=== PATIENT | female | born 1985 | race American Indian/Alaskan Native ===

== ENCOUNTER 2017-10-16 21:58 | Inpatient (IN) | payer MEDICAID ==
[2017-10-16] MEDS ORDERED: NACL 0.9% 1000 ML 1,000 ML IV ONE (22:15)
[2017-10-16] MEDS ORDERED: DILAUDID IV ONE ×2 (22:28→23:13)
--- NOTE | 2017-10-16 22:35 | Emergency Department Report ---
ED Shortness of Breath HPI - General Chief Complaint: Sickle Cell Crisis Stated Complaint: SEVERE BODY PAIN SICKLE CELL FIBROMYALGIA Time Seen by Provider: 10/16/17 22:30 Source: patient Mode of arrival: Ambulatory Limitations: No Limitations - History of Present Illness Initial Comments: Gen. 31-year-old female that presents to emergency room with pain all over and states that it is a sickle cell crisis since 2-3 hours ago. Patient states the pain is mostly in her lower extremities and lower back. Patient states she took 800 mg of ibuprofen at 8:30 PM tonight with minimal relief. Patient also states she is on prednisone and amoxicillin for a sinus infection and dental pain. Patient states the pain is a 10 out of 10. Patient also complains of shortness of breath. Patient says shortness breasts worse with ambulation and movement and exertion. He denies chest pain. MD Complaint: shortness of breath -: Sudden, hour(s) Radiation: back Severity: severe Pain Scale: 10 Quality: throbbing, stabbing Consistency: constant Improves With: rest, medication Worsens With: exertion, movement Known History Of: other (sickle cell anemia) Context: recent URI, recent illness Associated Symptoms: cough Treatments Prior to Arrival: other (ibuprofen) - Related Data Home Oxygen Therapy: No Previous Rx's Medication Instructions Recorded Last Taken Type HYDROcodone/APAP 5-325 [[place] 1 each PO Q6HR PRN #14 tablet 07/28/13 Unknown Rx 5/325 mg] Ibuprofen [Motrin] 800 mg PO TID #30 tablet 07/28/13 Unknown Rx Allergies Allergy/AdvReac Type Severity Reaction Status Date / Time No Known Allergies Allergy Unverified 07/28/13 14:24 ED Review of Systems ROS: Stated complaint: SEVERE BODY PAIN SICKLE CELL FIBROMYALGIA Other details as noted in HPI Constitutional: denies: chills, fever Eyes: denies: eye pain, eye discharge, vision change ENT: denies: ear pain, throat pain Respiratory: shortness of breath, SOB with exertion. denies: cough, wheezing Cardiovascular: denies: chest pain, palpitations Endocrine: no symptoms reported Gastrointestinal: denies: abdominal pain, nausea, diarrhea Genitourinary: denies: urgency, dysuria, discharge Musculoskeletal: as per HPI, back pain, arthralgia. denies: joint swelling Skin: denies: rash, lesions Neurological: denies: headache, weakness, paresthesias Psychiatric: denies: anxiety, depression Hematological/Lymphatic: denies: easy bleeding, easy bruising ED Past Medical Hx - Past Medical History Previous Medical History?: Yes Hx Sickle Cell Disease: Yes Hx Asthma: Yes Additional medical history: Fibromyalgia - Surgical History Past Surgical History?: Yes Additional Surgical History: eye surgery for cyst, d+c - Family History Family history: hypertension - Social History Smoking Status: Current Every Day Smoker Substance Use Type: None - Medications Home Medications: Home Medications Medication Instructions Recorded Confirmed Last Taken Type HYDROcodone/APAP 5-325 [[place] 1 each PO Q6HR PRN #14 tablet 07/28/13 Unknown Rx 5/325 mg] Ibuprofen [Motrin] 800 mg PO TID #30 tablet 07/28/13 Unknown Rx ED Physical Exam - General Limitations: No Limitations General appearance: alert, in no apparent distress - Head Head exam: Present: atraumatic, normocephalic - Eye Eye exam: Present: normal appearance - ENT ENT exam: Present: mucous membranes dry - Neck Neck exam: Present: normal inspection - Respiratory Respiratory exam: Present: normal lung sounds bilaterally. Absent: respiratory distress - Cardiovascular Cardiovascular Exam: Present: regular rate, normal rhythm. Absent: systolic murmur, diastolic murmur, rubs, gallop - GI/Abdominal GI/Abdominal exam: Present: soft, normal bowel sounds - Extremities Exam Extremities exam: Present: normal inspection, tenderness. Absent: pedal edema, joint swelling, calf tenderness - Back Exam Back exam: Present: normal inspection, tenderness, paraspinal tenderness - Neurological Exam Neurological exam: Present: alert, oriented X3 - Psychiatric Psychiatric exam: Present: normal affect, normal mood - Skin Skin exam: Present: warm, dry, intact, normal color. Absent: rash ED Course Vital Signs 10/16/17 10/16/17 10/17/17 22:04 22:22 00:53 Temperature 97.4 F L Pulse Rate 133 H 99 H Respiratory 22 16 14 Rate Blood Pressure 157/124 128/67 [Right] O2 Sat by Pulse 100 98 Oximetry - Reevaluation(s) Reevaluation #1: Discussed plan of care and admission with patient. Patient agreeable with plan of care. All results discussed with patient. Hospitalist consulted for admission. Hospitalist agreed to admit. 10/17/17 01:34 ED Medical Decision Making - Lab Data Result diagrams: 10/16/17 22:30 10/16/17 22:30 - EKG Data -: EKG Interpreted by Me EKG shows normal: sinus rhythm, axis, intervals, QRS complexes, ST-T waves Rate: tachycardia - Radiology Data Radiology results: report reviewed, image reviewed No acute findings on chest x-ray. - Medical Decision Making Patient is a 31-year-old female that presented to the hospital with intractable pain and sickle cell crisis and shortness of breath - Differential Diagnosis back pain. Degenerative disc disease. Sickle cell crisis. Shortness of b Critical care attestation.: If time is entered above; I have spent that time in minutes in the direct care of this critically ill patient, excluding procedure time. ED Disposition Clinical Impression: Shortness of breath, Sickle cell crisis, Back pain, Intractable pain Disposition: 09 OP ADMIT IP TO THIS HOSP Is pt being admited?: Yes Does the pt Need Aspirin: No Condition: Serious Time of Disposition: 01:34
[2017-10-16 22:46] LABS: Hematocrit 37.6 % (30.3-42.9); Hemoglobin 12.2 gm/dl (10.1-14.3); Mean Corpuscular HGB Conc 33 % (30-34); Mean Corpuscular Volume 79 fl (79-97); Platelet Count 381 K/mm3 (140-440); Red Blood Count 4.74 M/mm3 (3.65-5.03); Red Cell Distribution Width 15.9 % (13.2-15.2)
[2017-10-16 22:47] LABS: Mean Corpuscular Hemoglobin 26 pg (28-32)
[2017-10-16] MEDS ORDERED: D5NS 0.2% 1,000 ML IV SCH (23:00)
[2017-10-16 23:04] LABS: Creatine Kinase MB 1.1 ng/mL (0.0-4.0)
[2017-10-16 23:05] LABS: Alanine Aminotransferase 17 units/L (7-56); Albumin 4.8 g/dL (3.9-5); BUN/Creatinine Ratio 11; Blood Urea Nitrogen 8 mg/dL (7-17); Calcium 9.5 mg/dL (8.4-10.2); Hemolysis Index 4
[2017-10-16 23:10] LABS: Basophils % (Manual) 0 % (0.0-1.8); Eosinophils % (Manual) 0 % (0.0-4.3); Monocytes % (Manual) 0 % (0.0-7.3); Total Cells Counted 100
[2017-10-16 23:11] LABS: Anisocytosis 1+; Ovalocytes Few
[2017-10-17] MEDS ORDERED: DILAUDID ONE (01:30)
[2017-10-17] MEDS ORDERED: DILAUDID IV ONE (01:31)
[2017-10-17] MEDS ORDERED: HEPARIN ONE (01:41)
--- NOTE | 2017-10-17 01:55 | XRay Report ---
FINAL REPORT EXAM: XR CHEST 1V AP HISTORY: sob TECHNIQUE: A portable upright view the chest was submitted. FINDINGS: The heart size and mediastinum appear normal. The lungs are clear. Pleural fluid is not seen. The bones soft tissues are well maintained. IMPRESSION: No active chest disease.
[2017-10-17] MEDS ORDERED: MILK OF MAGNESIA PO PRN (02:25)
[2017-10-17] MEDS ORDERED: SODIUM CHLORIDE FLUSH SYRINGE 10 ML IV PRN (02:25)
[2017-10-17] MEDS ORDERED: DULCOLAX PR PRN (02:25)
[2017-10-17] MEDS ORDERED: DILAUDID IV PRN (02:25)
[2017-10-17] MEDS ORDERED: NARCAN 0.4 MG/1 ML IV PRN (02:25)
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
[2017-10-17] MEDS ORDERED: D5/0.45NS 1,000 ML IV SCH (03:00)
[2017-10-17] MEDS ORDERED: DELTASONE PO NR (03:00)
[2017-10-17] MEDS: NORCO 5/325 PO PRN ×3 (03:29→22:23)
[2017-10-17] MEDS ORDERED: LIDODERM 5% TD SCH ×2 (06:00→10:00)
[2017-10-17] MEDS: HEPARIN SUB-Q SCH ×3 (06:15→21:08)
[2017-10-17] MEDS: TORADOL IV SCH ×3 (06:16→17:56)
[2017-10-17 07:10] LABS: HCG Qualitative,Urine Negative (Negative)
[2017-10-17] MEDS: DILAUDID IV PRN ×3 (07:34→18:53)
[2017-10-17] MEDS: FOLVITE PO SCH (09:21)
[2017-10-17] MEDS: LIORESAL PO SCH ×3 (09:21→20:20)
[2017-10-17] MEDS: PROTONIX PO SCH (09:22)
[2017-10-17] MEDS: THERAGRAN Tab PO SCH (09:22)
--- NOTE | 2017-10-17 09:49 | Cat Scan Report ---
CT LUMBAR SPINE WITHOUT CONTRAST History: Back pain. Technique: Helical CT with sagittal and coronal reformatted images. Comparison: None. Findings: The lumbar vertebral bodies, disc spaces, facet joints and posterior elements are within normal limits. There is no evidence for fracture, bone lesion or significant degenerative changes. Although intraspinal contents can be obscured on CT, no large epidural defect or epidural hematoma is appreciated. There is suggestion of mild pyelocaliectasis in the right kidney. 1 or 2 punctate right renal stones are identified. The left kidney is unremarkable. IMPRESSION: Lumbar spine within normal limits. Right nephrolithiasis. Questionable right pyelocaliectasis.
[2017-10-17] MEDS ORDERED: AUGMENTIN 875 MG PO ONE (12:02)
[2017-10-17] MEDS: ZOFRAN IV PRN (14:39)
[2017-10-17] MEDS: BENADRYL IV PRN ×2 (14:47→21:01)
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
[2017-10-17] MEDS: D5/0.45NS 1,000 ML IV SCH (20:59)
[2017-10-17] MEDS: AUGMENTIN 875 MG PO SCH (21:06)
[2017-10-17] MEDS: SENOKOT PO SCH (21:06)
[2017-10-17] MEDS ORDERED: VALIUM PO ONE (21:22)
[2017-10-18] MEDS: TORADOL IV SCH ×3 (00:54→11:03)
[2017-10-18] MEDS: DILAUDID IV PRN ×3 (02:01→19:28)
[2017-10-18] MEDS: HEPARIN SUB-Q SCH ×3 (05:54→22:58)
[2017-10-18] MEDS: D5/0.45NS 1,000 ML IV SCH (06:04)
[2017-10-18 07:33] LABS: Basophils # (Auto) 0.1 K/mm3 (0.0-0.1); Basophils % (Auto) 0.4 % (0.0-1.8); Hematocrit 31.8 % (30.3-42.9); Lymphocytes % (Auto) 7.3 % (13.4-35.0); Mean Corpuscular HGB Conc 32 % (30-34); Mean Corpuscular Volume 79 fl (79-97); Monocytes # (Auto) 0.7 K/mm3 (0.0-0.8); Monocytes % (Auto) 5.1 % (0.0-7.3); Platelet Count 303 K/mm3 (140-440); Red Blood Count 4.02 M/mm3 (3.65-5.03); Red Cell Distribution Width 15.7 % (13.2-15.2)
[2017-10-18 07:42] LABS: Mean Corpuscular Hemoglobin 25 pg (28-32)
[2017-10-18] MEDS: LIORESAL PO SCH ×3 (09:05→20:42)
[2017-10-18] MEDS: THERAGRAN Tab PO SCH (09:05)
[2017-10-18] MEDS: PROTONIX PO SCH (09:05)
[2017-10-18] MEDS: AUGMENTIN 875 MG PO SCH ×2 (09:06→22:56)
[2017-10-18] MEDS: FOLVITE PO SCH (09:06)
[2017-10-18] MEDS: NORCO 5/325 PO PRN ×3 (09:06→22:58)
[2017-10-18] MEDS ORDERED: VALIUM PO SCH (13:00)
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
--- NOTE | 2017-10-18 14:26 | Discharge Summary ---
Providers - Providers Date of Admission: 10/17/17 01:33 Date of discharge: 10/18/17 Attending physician: CIARRA ALMARAZ 10/17/17 02:28 Consult to Case Management [CONS] Routine Services Needed at Discharge: Other Notified:: rosanna notified Primary care physician: MAGUI VALDEZ Hospitalization Condition: Stable Disposition: DC-01 TO HOME OR SELFCARE Time spent for discharge: 31 min Core Measure Documentation - Palliative Care Palliative Care/ Comfort Measures: Not Applicable - Core Measures Any of the following diagnoses?: none Exam - Constitutional Vitals: Temp Pulse Resp BP Pulse Ox 98.5 F 92 H 16 132/89 100 10/18/17 08:28 10/18/17 08:28 10/18/17 08:28 10/18/17 08:28 10/18/17 08:28 General appearance: Present: no acute distress, well-nourished - EENT Eyes: Present: PERRL, EOM intact - Neck Neck: Present: supple, normal ROM - Respiratory Respiratory effort: normal Respiratory: negative: rales, rhonchi, wheezing - Cardiovascular Rhythm: regular Heart Sounds: Present: S1 & S2 - Extremities Extremities: no ischemia, No edema - Abdominal General gastrointestinal: Present: soft, non-tender, non-distended, normal bowel sounds - Integumentary Integumentary: Present: clear, warm - Musculoskeletal Musculoskeletal: strength equal bilaterally - Psychiatric Psychiatric: appropriate mood/affect, cooperative - Neurologic Neurologic: CNII-XII intact, moves all extremities Plan Activity: no restrictions Diet: regular Special Instructions: smoking cessation Additional Instructions: Follow private motor inspection mechanic/sickle cell specialist in 1 -2 weeks Follow up with: MAGUI VALDEZ MD [Primary Care Provider] - 3-5 Days Prescriptions: Amoxicillin/K Clav Tab [Augmentin 875MG TAB] 1 each PO Q12HR #10 tablet Folic Acid [Folvite] 1 mg PO QDAY #30 tablet HYDROcodone/APAP 5-325 [Lee 5-325 mg TAB] 1 each PO Q6HR PRN #10 tablet PRN Reason: Pain LORazepam [Ativan] 0.5 mg PO QHS PRN #5 tab PRN Reason: Anxiety
[2017-10-18] MEDS ORDERED: BENADRYL PO PRN (14:33)
[2017-10-18] MEDS: ZOFRAN IV PRN (20:42)
[2017-10-18] MEDS ORDERED: VALIUM PO PRN (22:00)
[2017-10-18] MEDS: SENOKOT PO SCH (22:56)
[2017-10-19] MEDS: HEPARIN SUB-Q SCH (06:25)
[2017-10-19] MEDS: DILAUDID IV PRN (06:58)
[2017-10-19 08:12] LABS: Basophils % (Auto) 0.7 % (0.0-1.8); Eosinophils # (Auto) 0.1 K/mm3 (0.0-0.4); Eosinophils % (Auto) 1.7 % (0.0-4.3); Hematocrit 28.6 % (30.3-42.9); Lymphocytes # (Auto) 1.4 K/mm3 (1.2-5.4); Lymphocytes % (Auto) 33.5 % (13.4-35.0); Mean Corpuscular HGB Conc 31 % (30-34); Mean Corpuscular Volume 80 fl (79-97); Monocytes # (Auto) 0.3 K/mm3 (0.0-0.8); Monocytes % (Auto) 7.7 % (0.0-7.3); Platelet Count 250 K/mm3 (140-440); Red Blood Count 3.58 M/mm3 (3.65-5.03); Red Cell Distribution Width 15.6 % (13.2-15.2)
[2017-10-19 08:16] LABS: Mean Corpuscular Hemoglobin 25 pg (28-32)
[2017-10-19] MEDS: LIORESAL PO SCH (09:24)
[2017-10-19] MEDS: AUGMENTIN 875 MG PO SCH (09:25)
[2017-10-19] MEDS: PROTONIX PO SCH (09:25)
[2017-10-19] MEDS: FOLVITE PO SCH (09:25)
[2017-10-19] MEDS: THERAGRAN Tab PO SCH (09:25)
[2017-10-19 10:35] VITALS: BP 141/86
[2017-10-19] MEDS: NORCO 5/325 PO PRN (12:00)
== END 2017-10-19 15:00 | disposition home or self-care (01) | DRG 812 ==
LOC: ED 21:58 → 3A 10-17 01:33
PROVIDERS: ADMIT Family Medicine; ATTEND Internal Medicine
DX: D57.00 Hb-SS disease with crisis, unspecified (principal); E87.1 Hypo-osmolality and hyponatremia; G89.4 Chronic pain syndrome; F17.200 Nicotine dependence, unspecified, uncomplicated; M54.9 Dorsalgia, unspecified; E87.2 Acidosis; R62.7 Adult failure to thrive; R73.9 Hyperglycemia, unspecified; D72.829 Elevated white blood cell count, unspecified; M79.7 Fibromyalgia; Z82.49 Family history of ischemic heart disease and other diseases of the circulatory system
CPT/HCPCS: 36415; 71045; 72131; 80053; 81025; 82550; 82553; 83880; 84484; 85007; 85025; 85045; 85379; 93005; 93010; 96361; 96374; 96375; J1170; J1200; J1644; J1885; J2405; J2930; J7030; J7512

== ENCOUNTER 2017-12-14 11:38 | Emergency (ER) | payer MEDICAID ==
[2017-12-14] MEDS ORDERED: NORCO 5/325 ONE (11:42)
[2017-12-14] MEDS ORDERED: MOTRIN PO ONE ×2 (11:42→11:52)
[2017-12-14] MEDS ORDERED: NORCO 5/325 PO ONE (11:52)
--- NOTE | 2017-12-14 12:27 | Emergency Department Report ---
ED ENT HPI - General Chief complaint: Dental/Oral Stated complaint: SICKLE CELL PAIN Time Seen by Provider: 12/14/17 12:18 Source: patient, family Mode of arrival: Ambulatory Limitations: No Limitations - History of Present Illness Initial comments: Patient airport cracked tooth for 3 days and she is having increase in pain. Denies sore throats. Denies any cough or nasal congestion. Denies fever or chills or dental trauma She has a history of sickle cell and said that she thinks but denies crisis. It was stated in triage noted patient was having generalized pain but patient reported pain to her right lower tooth where it is broken. She denies any pain to her extremities, abdomen or back. Pain is 10 out of 10 and aching right lower back tooth. Pain is constant .Patient also has a history of fibromyalgia and asthma. She states that she went to a dentist and they couldn't do anything for her because of her insurance. Patient says she took Motrin at home without any relief. MD complaint: tooth pain Onset/Timin -: days(s) Location: tooth # (30) 1 - 30. Pain Severity: severe Severity scale (0 -10): 10 Quality: stabbing, aching Consistency: constant Improves with: none Worsens with: eating, movement Context- Dental: history of dental caries Associated Symptoms: toothache. denies: fever, cough, gum swelling, pain with swallowing, sore throat, tinnitus, hearing loss, discharge from ear, rhinorrhea - Related Data Previous Rx's Medication Instructions Recorded Last Taken Type Folic Acid [Folvite] 1 mg PO QDAY #30 tablet 10/19/17 Unknown Rx HYDROcodone/APAP 5-325 [[place] 1 each PO Q6HR PRN #10 tablet 10/19/17 Unknown Rx 5-325 mg TAB] LORazepam [Ativan] 0.5 mg PO QHS PRN #5 tab 10/19/17 Unknown Rx Clindamycin HCl 300 mg PO Q8H 10 Days #30 capsule 12/14/17 Unknown Rx Ibuprofen [Motrin 800 MG tab] 800 mg PO TID PRN #15 tablet 12/14/17 Unknown Rx oxyCODONE /ACETAMINOPHEN [Percocet 1 tab PO Q6HR PRN #12 tablet 12/14/17 Unknown Rx 5/325] Allergies Allergy/AdvReac Type Severity Reaction Status Date / Time No Known Allergies Allergy Unverified 07/28/13 14:24 ED Dental HPI - General Chief complaint: Dental/Oral Stated complaint: SICKLE CELL PAIN Time Seen by Provider: 12/14/17 12:18 Source: patient Mode of arrival: Ambulatory Limitations: No Limitations - Related Data Previous Rx's Medication Instructions Recorded Last Taken Type Folic Acid [Folvite] 1 mg PO QDAY #30 tablet 10/19/17 Unknown Rx HYDROcodone/APAP 5-325 [[place] 1 each PO Q6HR PRN #10 tablet 10/19/17 Unknown Rx 5-325 mg TAB] LORazepam [Ativan] 0.5 mg PO QHS PRN #5 tab 10/19/17 Unknown Rx Clindamycin HCl 300 mg PO Q8H 10 Days #30 capsule 12/14/17 Unknown Rx Ibuprofen [Motrin 800 MG tab] 800 mg PO TID PRN #15 tablet 12/14/17 Unknown Rx oxyCODONE /ACETAMINOPHEN [Percocet 1 tab PO Q6HR PRN #12 tablet 12/14/17 Unknown Rx 5/325] Allergies Allergy/AdvReac Type Severity Reaction Status Date / Time No Known Allergies Allergy Unverified 07/28/13 14:24 ED Review of Systems ROS: Stated complaint: SICKLE CELL PAIN Other details as noted in HPI Constitutional: denies: chills, fever Eyes: denies: eye pain, eye discharge, vision change ENT: ear pain, dental pain. denies: throat pain, congestion Respiratory: denies: cough, shortness of breath, SOB with exertion, SOB at rest , wheezing Cardiovascular: denies: chest pain, palpitations Gastrointestinal: denies: abdominal pain, nausea, vomiting, diarrhea Genitourinary: denies: urgency, dysuria, discharge Musculoskeletal: denies: back pain, joint swelling, arthralgia, myalgia Skin: denies: rash, lesions Neurological: denies: headache Psychiatric: denies: anxiety, depression Hematological/Lymphatic: denies: swollen glands ED Past Medical Hx - Past Medical History Previous Medical History?: Yes Hx Sickle Cell Disease: Yes Hx Asthma: Yes Additional medical history: Fibromyalgia - Surgical History Past Surgical History?: Yes Additional Surgical History: eye surgery for cyst, d+c - Family History Family history: hypertension - Social History Smoking Status: Unknown if ever smoked Substance Use Type: None Other Social History: Patient is single - Medications Home Medications: Home Medications Medication Instructions Recorded Confirmed Last Taken Type Folic Acid [Folvite] 1 mg PO QDAY #30 tablet 10/19/17 Unknown Rx HYDROcodone/APAP 5-325 [[place] 1 each PO Q6HR PRN #10 tablet 10/19/17 Unknown Rx 5-325 mg TAB] LORazepam [Ativan] 0.5 mg PO QHS PRN #5 tab 10/19/17 Unknown Rx Clindamycin HCl 300 mg PO Q8H 10 Days #30 capsule 12/14/17 Unknown Rx Ibuprofen [Motrin 800 MG tab] 800 mg PO TID PRN #15 tablet 12/14/17 Unknown Rx oxyCODONE /ACETAMINOPHEN [Percocet 1 tab PO Q6HR PRN #12 tablet 12/14/17 Unknown Rx 5/325] ED Physical Exam - General Limitations: No Limitations General appearance: alert, in no apparent distress - Head Head exam: Present: atraumatic, normocephalic, normal inspection - Eye Eye exam: Present: normal appearance, PERRL, EOMI Pupils: Present: normal accommodation - ENT ENT exam: Present: normal orophraynx, mucous membranes moist, TM's normal bilaterally, normal external ear exam - Expanded ENT Exam Expanded Mouth exam: Present: normal external inspection Teeth exam: Present: dental caries, dental tenderness # (#30), other (mild gingivitis). Absent: normal inspection, fractured tooth # 1 - Dental Tenderness (tooth #30 without any induration or fluctuance. Mild gingivitis), Other (dental caries) Throat exam: Positive: normal inspection - Neck Neck exam: Present: normal inspection, full ROM, lymphadenopathy, other (no C- spine tenderness). Absent: tenderness, meningismus - Respiratory Respiratory exam: Present: normal lung sounds bilaterally. Absent: respiratory distress, chest wall tenderness, accessory muscle use - Cardiovascular Cardiovascular Exam: Present: regular rate, normal rhythm, normal heart sounds. Absent: systolic murmur, diastolic murmur - GI/Abdominal GI/Abdominal exam: Present: soft, normal bowel sounds. Absent: tenderness - Extremities Exam Extremities exam: Present: normal inspection, full ROM, normal capillary refill , other (, cyanosis or edema. +2 pulses all extremities and no neurovascular compromise). Absent: tenderness, pedal edema, joint swelling, calf tenderness - Back Exam Back exam: Present: normal inspection, full ROM, other (ambulates that any difficulties). Absent: tenderness, CVA tenderness (R), CVA tenderness (L), muscle spasm, paraspinal tenderness, vertebral tenderness, rash noted - Neurological Exam Neurological exam: Present: alert, oriented X3, normal gait - Psychiatric Psychiatric exam: Present: normal affect, normal mood - Skin Skin exam: Present: warm, dry, intact, normal color. Absent: rash ED Course Vital Signs 12/14/17 12/14/17 11:46 14:30 Temperature 98.5 F Pulse Rate 71 82 Respiratory 18 Rate Blood Pressure 134/96 Blood Pressure 124/78 [Left] O2 Sat by Pulse 99 100 Oximetry - Reevaluation(s) Reevaluation #1: 12/14/17 12:29 Patient was given ibuprofen and [place] at 11:48 AM in triage which she said didn' t help her pain. Because she says she usually takes Percocet for her sickle cell and Motrin and [place] doesn't usually help. Dilaudid 1 mg IM and Zofran 8 mg ODT. By mouth hydration. Reevaluation #2: 12/14/17 13:59 Patient was still having pain after Dilaudid one milligrams IM before she got Percocet 5/325 2 tablets by mouth and says she was feeling better and ready to go. Oral hydration without any complication. ED Medical Decision Making - Medical Decision Making ED course: Diagnosis 1: Toothache-pain is better after [place] 5/325 one tablet, Motrin 8 mg by mouth, Dilaudid 1 mg IM and Percocet 5/325 2 tablets when necessary emergency room. She was also given Zofran 4 mg ODT to prevent nausea. We will send home and pain medication 2: Mild gingivitis 3: Dental caries Clindamycin prescription upon discharge Referred to [facility] dental clinic for further valuation and treatment Patient discharged home in stable condition with her family with prescription for clindamycin, Percocet and Motrin. She was nondistended discharge instruction, medication, treatment plan and need to follow up with dentist to fix gingivitis, dental caries. Critical care attestation.: If time is entered above; I have spent that time in minutes in the direct care of this critically ill patient, excluding procedure time. ED Disposition Clinical Impression: Tooth ache, Dental caries, Gingivitis Disposition: TO HOME OR SELFCARE Is pt being admited?: No Does the pt Need Aspirin: No Condition: Stable Instructions: Dental Caries (ED), Gingivitis (ED), Toothache (ED) Additional Instructions: Please follow up with [facility] dental clinic. Call in the morning to schedule an appointment Take antibiotic as prescribed Do not drive or operative heavy machinery while taking in pain medication as it can cause drowsiness Floss and gargle with listerine twice daily Please increase fluid intake to 2-3 L of water daily. Prescriptions: Clindamycin HCl 300 mg PO Q8H 10 Days #30 capsule Ibuprofen [Motrin 800 MG tab] 800 mg PO TID PRN #15 tablet PRN Reason: mild to moderate pain oxyCODONE /ACETAMINOPHEN [Percocet 5/325] 1 tab PO Q6HR PRN #12 tablet PRN Reason: severe pain Referrals: PRIMARY CARE, [Primary Care Provider] - 2-3 Days [facility] [Outside] - 24 Hours Forms: Accompanied Note, Work/School Release Form(ED)
[2017-12-14] MEDS ORDERED: DILAUDID IM ONE (12:28)
[2017-12-14] MEDS ORDERED: ZOFRAN ODT PO ONE (12:28)
[2017-12-14] MEDS ORDERED: PERCOCET 5/325 PO ONE (13:16)
[2017-12-14 16:23] VITALS: BP 124/78
== END 2017-12-14 14:10 | disposition home or self-care (01) ==
LOC: ED 11:38
DX: K02.9 Dental caries, unspecified (principal); K05.10 Chronic gingivitis, plaque induced; J45.909 Unspecified asthma, uncomplicated; M79.7 Fibromyalgia; D57.1 Sickle-cell disease without crisis
CPT/HCPCS: 96372; 99282; J1170; Q0162

== ENCOUNTER 2018-01-08 23:04 | Emergency (ER) | payer MEDICAID ==
[2018-01-08] MEDS ORDERED: D5NS 0.2% 1,000 ML IV SCH (23:45)
[2018-01-08] MEDS ORDERED: ASPIRIN PO ONE (23:53)
[2018-01-09 00:43] VITALS: BP 155/99
[2018-01-09 00:55] LABS: Basophils # (Auto) 0.1 K/mm3 (0.0-0.1); Basophils % (Auto) 1.3 % (0.0-1.8); Eosinophils % (Auto) 0.6 % (0.0-4.3); Hematocrit 32.2 % (30.3-42.9); Hemoglobin 10.1 gm/dl (10.1-14.3); Lymphocytes # (Auto) 1.5 K/mm3 (1.2-5.4); Lymphocytes % (Auto) 34.2 % (13.4-35.0); Mean Corpuscular HGB Conc 32 % (30-34); Mean Corpuscular Volume 76 fl (79-97); Monocytes # (Auto) 0.3 K/mm3 (0.0-0.8); Monocytes % (Auto) 7.4 % (0.0-7.3); Platelet Count 313 K/mm3 (140-440); Red Blood Count 4.22 M/mm3 (3.65-5.03); Red Cell Distribution Width 17.5 % (13.2-15.2)
[2018-01-09 01:00] LABS: Mean Corpuscular Hemoglobin 24 pg (28-32)
[2018-01-09] MEDS ORDERED: ZOFRAN IV ONE ×2 (01:04→03:59)
[2018-01-09] MEDS ORDERED: NACL 0.9% 1000 ML 1,000 ML IV ONE (01:04)
[2018-01-09] MEDS ORDERED: DILAUDID IV ONE ×2 (01:04→02:32)
[2018-01-09 01:08] LABS: BUN/Creatinine Ratio 28; Blood Urea Nitrogen 17 mg/dL (7-17); Calcium 9.5 mg/dL (8.4-10.2); Hemolysis Index 1
--- NOTE | 2018-01-09 01:15 | Emergency Department Report ---
HPI - General Chief Complaint: Chest Pain Time Seen by Provider: 01/09/18 00:50 - HPI HPI: 32-year-old female presents to the emergency department with complaint of pain everywhere going on for the past 2 days since she had a lumbar spinal block done by Dr. Elle Chiagn at the [place] [facility]. The patient has a history of DJD and says that she has a history of several herniated discs in different locations. She was having some soreness after the procedure and it has gotten progressively worse since then and now has gotten to an intensity of 10 out of 10. It radiates down to the legs, into the chest, has caused her to have a headache and she says that it has brought on a sickle cell pain crisis. Patient also has a history of asthma and fibromyalgia. She took some home pain medication without any relief. She denies any fever, numbness, paresthesias or any problems with bowel or bladder. ED Past Medical Hx - Past Medical History Hx Sickle Cell Disease: Yes Hx Asthma: Yes Additional medical history: Fibromyalgia, DJD - Surgical History Additional Surgical History: eye surgery for cyst, d+c - Social History Smoking Status: Never Smoker Substance Use Type: None - Medications Home Medications: Home Medications Medication Instructions Recorded Confirmed Last Taken Type Folic Acid [Folvite] 1 mg PO QDAY #30 tablet 10/19/17 Unknown Rx HYDROcodone/APAP 5-325 [[place] 1 each PO Q6HR PRN #10 tablet 10/19/17 Unknown Rx 5-325 mg TAB] LORazepam [Ativan] 0.5 mg PO QHS PRN #5 tab 10/19/17 Unknown Rx Clindamycin HCl 300 mg PO Q8H 10 Days #30 capsule 12/14/17 Unknown Rx Ibuprofen [Motrin 800 MG tab] 800 mg PO TID PRN #15 tablet 12/14/17 Unknown Rx oxyCODONE /ACETAMINOPHEN [Percocet 1 tab PO Q6HR PRN #14 tablet 01/09/18 Unknown Rx 5/325 mg] ED Review of Systems ROS: Stated complaint: SICKLE CELL Other details as noted in HPI Comment: All other systems reviewed and negative Constitutional: denies: chills, fever Eyes: denies: eye pain, eye discharge, vision change ENT: denies: ear pain, throat pain Respiratory: denies: cough, shortness of breath, wheezing Cardiovascular: chest pain. denies: palpitations Gastrointestinal: denies: abdominal pain, nausea, diarrhea Genitourinary: denies: urgency, dysuria, discharge Musculoskeletal: back pain, arthralgia, myalgia Skin: denies: rash, lesions Neurological: headache. denies: numbness Physical Exam - Physical Exam Vital Signs: Vital Signs 01/08/18 06 23:44 00:42 Temperature 97.9 F 98.0 F Pulse Rate 73 77 Respiratory 20 16 Rate Blood Pressure 83/66 Blood Pressure 155/99 [Left] O2 Sat by Pulse 92 100 Oximetry ED Course Vital Signs 01/08/18 01/09/18 23:44 00:42 Temperature 97.9 F 98.0 F Pulse Rate 73 77 Respiratory 20 16 Rate Blood Pressure 83/66 Blood Pressure 155/99 [Left] O2 Sat by Pulse 92 100 Oximetry ED Medical Decision Making - Lab Data Result diagrams: 01/09/18 00:14 01/09/18 00:14 Critical care attestation.: If time is entered above; I have spent that time in minutes in the direct care of this critically ill patient, excluding procedure time. ED Disposition Clinical Impression: Sickle cell crisis Back pain Qualifiers: Back pain location: low back pain Chronicity: unspecified Back pain laterality : unspecified Sciatica presence: with sciatica Sciatica laterality: bilateral sciatica Qualified Code(s): M54.42 - Lumbago with sciatica, left side; M54.41 - Lumbago with sciatica, right side Hypertension Qualifiers: Hypertension type: essential hypertension Qualified Code(s): I10 - Essential ( primary) hypertension Sciatica Qualifiers: Laterality: bilateral Qualified Code(s): M54.31 - Sciatica, right side; M54.32 - Sciatica, left side Disposition: - TO HOME OR SELFCARE Is pt being admited?: No Condition: Stable Instructions: Hypertension (ED) Additional Instructions: Please follow up with your orthopedic/spinal physician and/or pain management physician, Dr. Chiang, as soon as possible. I have also given you a referral for a local neurosurgeon, Dr De Santiago, and another orthopedic group, just in case you need other referrals regarding your back pain. Return to the emergency department with any worsening of your symptoms, inability to urinate, numbness (especially in the groin), development of a fever, or with any acute distress. You have been prescribed a medication that is sedating and therefore should not be taken prior to driving, working, and responsible for children and in no way should be mixed with alcohol of any quantity. Prescriptions: oxyCODONE /ACETAMINOPHEN [Percocet 5/325 mg] 1 tab PO Q6HR PRN #14 tablet PRN Reason: severe pain Referrals: KERRI DE SANTIAGO MD [Staff Physician] - [facility], [facility] [Provider Group] - [facility] Time of Disposition: 04:19
[2018-01-09] MEDS ORDERED: K-DUR PO ONE (01:17)
[2018-01-09 01:30] LABS: INR 1.01 (0.87-1.13)
[2018-01-09 01:31] LABS: Partial Thromboplastin Time 28.6 Sec. (24.2-36.6)
--- NOTE | 2018-01-09 02:04 | XRay Report ---
FINAL REPORT PROCEDURE: XR CHEST 1V AP TECHNIQUE: Chest radiograph anteroposterior view. CPT 97754 HISTORY: CP COMPARISON: 10/17/2017 FINDINGS: Heart: Normal. Mediastinum/Vessels: Normal. Lungs/Pleural space: Normal. Bony thorax: No acute osseous abnormality. Life support devices: None. IMPRESSION: No acute cardiopulmonary abnormality.
[2018-01-09] MEDS ORDERED: ZOFRAN ONE (03:38)
--- NOTE | 2018-01-09 04:08 | Cat Scan Report ---
FINAL REPORT PROCEDURE: CT LUMBAR SPINE W CON TECHNIQUE: Computerized axial tomography of the lumbar spine was performed from T12 to the sacrum without contrast material. HISTORY: back pain, recent spinal block COMPARISON: No prior studies are available for comparison. FINDINGS: L1-2: No significant abnormality. L2-3: No significant abnormality. L3-4: No significant abnormality. L4-5: No significant abnormality. L5-S1: No significant abnormality. Other: The alignment of the vertebral segments is normal. The heights of the vertebral bodies and the disc spaces are maintained. No acute fracture or dislocation.. IMPRESSION: There is no evidence of an acute fracture or dislocation of the lumbar spine.
== END 2018-01-09 04:20 | disposition home or self-care (01) ==
LOC: ED 23:04
DX: M54.42 Lumbago with sciatica, left side (principal); D57.00 Hb-SS disease with crisis, unspecified; M54.31 Sciatica, right side; I10 Essential (primary) hypertension; J45.909 Unspecified asthma, uncomplicated
CPT/HCPCS: 36415; 71045; 72132; 80048; 84484; 84703; 85025; 85045; 85610; 85730; 93005; 93010; 96374; 96375; 96376; 99285; J1170; J2405; J7030

== ENCOUNTER 2019-01-03 02:24 | Emergency (ER) | payer MEDICAID, OTHER ==
[2019-01-03 02:42] VITALS: BP 125/83
[2019-01-03 05:10] LABS: Basophils % (Auto) 1.2 % (0.0-1.8); Eosinophils # (Auto) 0.1 K/mm3 (0.0-0.4); Eosinophils % (Auto) 1.9 % (0.0-4.3); Hematocrit 31.7 % (30.3-42.9); Hemoglobin 9.8 gm/dl (10.1-14.3); Lymphocytes # (Auto) 1.2 K/mm3 (1.2-5.4); Lymphocytes % (Auto) 41.7 % (13.4-35.0); Mean Corpuscular HGB Conc 31 % (30-34); Mean Corpuscular Volume 72 fl (79-97); Monocytes # (Auto) 0.3 K/mm3 (0.0-0.8); Monocytes % (Auto) 9.8 % (0.0-7.3); Platelet Count 266 K/mm3 (140-440); Red Blood Count 4.38 M/mm3 (3.65-5.03); Red Cell Distribution Width 18.2 % (13.2-15.2)
[2019-01-03 05:29] LABS: BUN/Creatinine Ratio 21; Blood Urea Nitrogen 15 mg/dL (7-17); Calcium 9.7 mg/dL (8.4-10.2); Hemolysis Index 6
[2019-01-03] MEDS ORDERED: NACL 0.9% 1000 ML 1,000 ML IV ONE (05:41)
[2019-01-03] MEDS ORDERED: DILAUDID IV ONE (05:41)
[2019-01-03] MEDS ORDERED: TORADOL IV ONE (05:41)
--- NOTE | 2019-01-03 05:45 | Emergency Department Report ---
Blank Doc - Documentation Documentation: 33-year-old female with history of sickle cell disease presents to ED with com plaint of lower back pain and bilateral leg pain. Patient reports history of chronic low back pain. States her chronic back pain has flared up which is triggering a sickle cell crisis. Labs ordered. Will also order IV fluids, toradol and dilaudid for pain.
--- NOTE | 2019-01-03 06:32 | Emergency Department Report ---
HPI - General Chief Complaint: Sickle Cell Crisis Time Seen by Provider: 01/03/19 06:01 - HPI HPI: 33-year-old female presents to the emergency department with a complaint of some low back pain with radiation down the bilateral legs. She has a history of degenerative joint disease and disc disease of the back/spine and chronic low back pains. Patient says that she is currently caring for her mother, who is disabled or incapacitated, and that her mother is a "large" woman and the patient has reinjured her back. She says that due to her back pain, it has caused a sickle cell pain crisis with more of a generalized pain. The patient follows up with Dr. Elle Chiang at [place] [facility]. She says that she has received multiple spinal and hip injections and some type of "outpatient surgery" for this in the past. It does not appear that she has a primary care physician or office support assistant. Patient has not taken anything for her symptoms prior to presentation. She denies any problems with bowel or bladder, but does have some numbness to the toes of the right foot. ED Past Medical Hx - Past Medical History Previous Medical History?: Yes Hx Sickle Cell Disease: Yes Hx Asthma: Yes Additional medical history: Fibromyalgia, DJD - Surgical History Past Surgical History?: Yes Additional Surgical History: eye surgery for cyst, d+c. back - Social History Smoking Status: Never Smoker Substance Use Type: Alcohol - Medications Home Medications: Home Medications Medication Instructions Recorded Confirmed Last Taken Type Folic Acid [Folvite] 1 mg PO QDAY #30 tablet 10/19/17 Unknown Rx HYDROcodone/APAP 5-325 [[place] 1 each PO Q6HR PRN #10 tablet 10/19/17 Unknown Rx 5-325 mg TAB] LORazepam [Ativan] 0.5 mg PO QHS PRN #5 tab 10/19/17 Unknown Rx Clindamycin HCl 300 mg PO Q8H 10 Days #30 capsule 12/14/17 Unknown Rx Ibuprofen [Motrin 800 MG tab] 800 mg PO TID PRN #15 tablet 12/14/17 Unknown Rx oxyCODONE /ACETAMINOPHEN [Percocet 1 tab PO Q6HR PRN #14 tablet 01/09/18 Unknown Rx 5/325 mg] HYDROcodone/APAP 5-325 [[place] 1 each PO Q6HR PRN #10 tablet 01/03/19 Unknown Rx 5/325] ED Review of Systems ROS: Stated complaint: SEVERE BACK PAIN/SICKLE CELL Other details as noted in HPI Comment: All other systems reviewed and negative Constitutional: denies: chills, fever Eyes: denies: eye pain, vision change ENT: denies: ear pain, throat pain Respiratory: denies: cough, shortness of breath Cardiovascular: denies: chest pain, palpitations Gastrointestinal: denies: abdominal pain, vomiting Genitourinary: denies: dysuria, discharge Musculoskeletal: back pain, arthralgia, myalgia. denies: joint swelling Skin: denies: rash, lesions Neurological: numbness (toes of the right foot). denies: headache Physical Exam - Physical Exam Vital Signs: Vital Signs 01/03/19 02:41 Temperature 97.9 F Pulse Rate 68 Respiratory 18 Rate Blood Pressure 125/83 [Right] O2 Sat by Pulse 98 Oximetry Physical Exam: GENERAL: The patient is well-developed well-nourished. HENT: Normocephalic. Atraumatic. Patient has moist mucous membranes. EYES: Extraocular motions are intact. NECK: Supple. Trachea is midline. CHEST/LUNGS: Clear to auscultation. There is no respiratory distress noted. HEART/CARDIOVASCULAR: Regular. There is no tachycardia. There is no murmur. ABDOMEN: Abdomen is soft, nontender. Patient has normal bowel sounds. There is no abdominal distention. SKIN: Skin is warm and dry. NEURO: The patient is awake, alert, and oriented. The patient is cooperative. The patient has no focal neurologic deficits. The patient has normal speech. MUSCULOSKELETAL: There is no tenderness or deformity. There is no limitation range of motion. There is no evidence of acute injury. Muscle strength 5 out of 5 upper and lower extremities including EHL bilaterally. BACK: There is both midline and bilateral paraspinal tenderness to palpation of the lumbar spine. No step-off or deformity. ED Course Vital Signs 01/03/19 02:41 Temperature 97.9 F Pulse Rate 68 Respiratory 18 Rate Blood Pressure 125/83 [Right] O2 Sat by Pulse 98 Oximetry ED Medical Decision Making - Lab Data Result diagrams: 01/03/19 04:49 01/03/19 04:49 - Medical Decision Making This patient presents to the emergency department with complaint of acute on chronic back pain with some radiation down her buttocks and legs. It is mostly atraumatic but the patient does say that she is helping to care for her mother which exacerbates her pain. She then says that the chronic back pain has caused a sickle cell pain crisis. Patient was evaluated in the emergency department with a physical examination and some labs. On examination, the patient has some reproducible low back pain but there is no step-off or deformity. She has full upper and lower muscle strength. Labs are mostly unremarkable. She does have a hemoglobin of 9.8 which is consistent with her anemia but does not require transfusion. Reticulocyte count of 1. Patient was given 2 different doses of pain medication. She says that she has Dr. Elle Chiang, an [place] pain [facility], appears to be an anesthesiologist. The patient continues to talk about chronic degenerative joint and disc disease, and complains of this back pain, she will be given a referral for neurosurgery for further evaluation. She denies any problems with bowel or bladder and does not appear to have any significant numbness or paresthesias. She appears low suspicion for any of the emergent conditions such as cauda equina or cord compression syndrome. Patient was given a small amount of narcotic pain medication as a prescription to bridge her to get back to her pain physician and she has been instructed to follow up with neurosurgery. She will return to the ER with any worsening of her symptoms or any acute distress. - Differential Diagnosis sickle cell pain crisis, sciatica, lumbar strain, herniated disc Critical Care Time: No Critical care attestation.: If time is entered above; I have spent that time in minutes in the direct care of this critically ill patient, excluding procedure time. ED Disposition Clinical Impression: Sickle cell crisis Back pain Qualifiers: Back pain location: low back pain Chronicity: unspecified Back pain laterality: unspecified Sciatica presence: with sciatica Sciatica laterality: sciatica laterality unspecified Qualified Code(s): M54.40 - Lumbago with sciatica, unspecified side Disposition: TO HOME OR SELFCARE Is pt being admited?: No Condition: Stable Instructions: Sickle Cell Crisis (ED), Back Pain (ED) Additional Instructions: Please follow-up with your primary care physician, office support assistant, pain management physician in the next few days. I am giving her a referral for a local neurologist, Dr. De Santiago, to follow-up in regards to evaluation of your back pain. Return to the emergency Department with any worsening of your symptoms or any acute distress. You have been prescribed a medication that is sedating and therefore should not be taken prior to driving, working, and responsible for children and in no way should be mixed with alcohol of any quantity. Prescriptions: HYDROcodone/APAP 5-325 [[place] 5/325] 1 each PO Q6HR PRN #10 tablet PRN Reason: Pain Referrals: KERRI DE SANTIAGO MD [Staff Physician] - 2-3 Days Yokasta Chiang [Other] - 2-3 Days Time of Disposition: 07:50
[2019-01-03] MEDS ORDERED: DILAUDID IM ONE (07:30)
[2019-01-03] MEDS ORDERED: ZOFRAN ODT PO ONE (07:31)
== END 2019-01-03 08:00 | disposition home or self-care (01) ==
LOC: ED 02:24
DX: D57.00 Hb-SS disease with crisis, unspecified (principal); J45.909 Unspecified asthma, uncomplicated; Z98.890 Other specified postprocedural states
CPT/HCPCS: 36415; 80048; 85025; 85045; 96372; 96374; 96375; 99283; J1170; J1885; Q0162

== ENCOUNTER 2021-08-16 13:24 | Outpatient (CLI) | payer OTHER ==
--- NOTE | 2021-08-16 14:21 | XRay Report ---
CHEST 2 VIEWS INDICATION: CHEST PAIN. COMPARISON: 01/09/2018 FINDINGS: Support devices: None. Heart: Within normal limits. Lungs/pleura: No acute air space or interstitial disease. No pneumothorax. Additional findings: None. IMPRESSION: No acute findings. Signer Name: Bhargav Ceballos Jr, MD Signed: 08/16/2021 2:17 PM Workstation Name: [id number]
--- NOTE | 2021-08-17 11:43 | Electrocardiograph Report ---
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
== END 2021-08-16 13:25 | disposition home or self-care (01) ==
LOC: CARD 13:24
PROVIDERS: ATTEND Internal Medicine Hematology & Oncology
DX: R06.02 Shortness of breath (principal); R07.9 Chest pain, unspecified
CPT/HCPCS: 71046; 93005; 93010